=== PATIENT | female | born 1930 | race Caucasian/White ===

== ENCOUNTER 2017-02-20 07:16 | Inpatient (IN) | payer OTHER, MEDICARE ==
[~2017-02-20] VITALS: Ht 165.1 cm; Wt 49.9 kg
[2017-02-20 07:20] VITALS: BP_SYST 122
[2017-02-20] MEDS ORDERED: NS 500 ML IV SCH (07:25)
[2017-02-20] MEDS ORDERED: NACL 0.9% 500 ML IV ONE (07:30)
[2017-02-20] MEDS ORDERED: DILTIAZEM HCL 25 MG/5 ML VIAL IVP ONE ×2 (07:30→11:45)
[2017-02-20] MEDS ORDERED: SERT25TA PO (07:51)
[2017-02-20] MEDS ORDERED: CYM30 PO (07:51)
[2017-02-20] MEDS ORDERED: POTA8TAB4 PO (07:51)
[2017-02-20] MEDS ORDERED: MULT PO (07:51)
[2017-02-20] MEDS ORDERED: OMEP20CA10 PO (07:51)
[2017-02-20] MEDS ORDERED: ALBU8.5H8 INH (07:51)
[2017-02-20] MEDS ORDERED: MAG360OR83 PO (07:51)
[2017-02-20] MEDS ORDERED: DILT240C91 PO (07:51)
[2017-02-20] MEDS ORDERED: METO-442 PO (07:51)
[2017-02-20] MEDS ORDERED: DOCU250C PO (07:51)
[2017-02-20] MEDS ORDERED: LISI40TA4 PO (07:51)
[2017-02-20] MEDS ORDERED: ALEN10TA6 PO (07:51)
[2017-02-20] MEDS ORDERED: CALC-226 PO (07:51)
[2017-02-20] MEDS ORDERED: TRAM50TA92 PO (07:51)
[2017-02-20] MEDS ORDERED: DABI150C PO (07:51)
[2017-02-20 08:22] LABS: BASOPHILS # (AUTO) 0.2 K/uL (0.0-0.2); EOSINOPHILS # (AUTO) 0.1 K/uL (0.0-0.4); EOSINOPHILS % (AUTO) 1.4 % (0.0-4.0); HEMATOCRIT 42.7 % (36-48); HEMOGLOBIN 14.1 g/dL (12.0-16.0); LYMPHOCYTES # (AUTO) 1.5 K/uL (1.0-5.5); LYMPHOCYTES % (AUTO) 16.8 % (20.5-51.5); MEAN CORPUSCULAR HEMOGLOBIN 30 pg (27-31); MEAN CORPUSCULAR HGB CONC 33 % (32-36); MEAN CORPUSCULAR VOLUME 92 fL (79.0-98.0); MONOCYTES # (AUTO) 0.4 K/uL (0.0-1.0); MONOCYTES % (AUTO) 4.6 % (1.7-9.3); NEUTROPHILS # (AUTO) 6.4 K/uL (1.8-7.7); NEUTROPHILS % (AUTO) 75.2 % (40.0-70.0); PLATELET COUNT (AUTO) 206 K/uL (130-430); RED BLOOD CELL COUNT(AUTO) 4.63 MIL/uL (4.2-6.2); RED CELL DISTRIBUTION WIDTH 13.6 % (9.0-15.0); WHITE BLOOD COUNT (AUTO) 8.6 K/uL (4.8-10.8)
[2017-02-20 08:35] LABS: INR 1.2 (0.8-1.2); PROTHROMBIN TIME 12.5 SECS (9.5-12.5)
[2017-02-20 09:41] LABS: ANION GAP 4 (5-15); CALCIUM 8.6 mg/dL (8.4-11.0); CHLORIDE 109 mmol/L (98-107); CREATININE 1.11 mg/dL (0.55-1.30); GLUCOSE 95 mg/dL (70-99); POTASSIUM 3.3 mmol/L (3.5-5.1); SODIUM SERUM 144 mmol/L (136-145); UREA NITROGEN, BLOOD 20 mg/dL (8-21)
[2017-02-20 10:05] LABS: ALANINE AMINOTRANSFERASE 17 U/L (12-78); ALBUMIN 3.1 g/dL (3.4-4.8); ASPARTATE AMINOTRANSFERASE 22 U/L (10-37); TOTAL BILIRUBIN 0.5 mg/dL (0.0-1.0)
[2017-02-20 10:18] LABS: BILIRUBIN,URINE NEGATIVE (NEGATIVE); BLOOD, URINE 3+ (NEGATIVE); CLARITY/URINE SL HAZY (CLEAR); COLOR,URINE YELLOW (YELLOW); GLUCOSE,URINE NEGATIVE (NEGATIVE); KETONES,URINE NEGATIVE (NEGATIVE); LEUKOCYTE ESTERASE ,URINE NEGATIVE (NEGATIVE); NITRITE, URINE NEGATIVE (NEGATIVE); PROTEIN URINE TRACE (NEGATIVE); UROBILINOGEN,URINE 0.2 (0.2-1.0)
[2017-02-20 10:33] LABS: BACTERIA,URINE MODERATE /HPF (None Seen); RBC,URINE >100 /HPF (0-3); WBC,URINE 0-3 /HPF (0-3)
[2017-02-20] MEDS ORDERED: DABIGATRAN ETEXILATE MESYLATE 75 MG CAPSULE PO ONE (12:00)
[2017-02-20] MEDS ORDERED: METOPROLOL TARTRATE 25 MG TABLET PO ONE (12:00)
[2017-02-20] MEDS ORDERED: LORazepam 1 MG TABLET PO ONE (12:00)
[2017-02-20] MEDS ORDERED: DILTIAZEM HCL 240 MG CAP.SR.24H PO ONE (12:00)
[2017-02-20] MEDS ORDERED: LORazepam 2 MG/ML VIAL (FOR ER USE) IVP ONE (12:15)
[2017-02-20] MEDS ORDERED: LORazepam 2 MG/ML VIAL (FOR ER USE) ONE (12:26)
[2017-02-20] MEDS ORDERED: MAG-AL HYDROX/SIMETH 30 ML UDC PO PRN (13:00)
[2017-02-20] MEDS ORDERED: LORazepam 2 MG/ML VIAL IVP PRN (13:00)
[2017-02-20] MEDS ORDERED: ALBUTEROL MDI INHALATION 8 GM INH INH PRN (13:00)
[2017-02-20] MEDS ORDERED: traMADol HCL HCL 50 MG TABLET (ULTRAM) PO PRN (13:00)
[2017-02-20 15:33] VITALS: BP_SYST 145
[2017-02-20] MEDS ORDERED: POTASSIUM CHLORIDE 20 MEQ in NS 250 ML IV ONE (18:30)
[2017-02-20 19:10] VITALS: BP_SYST 134
[2017-02-20] MEDS: DABIGATRAN ETEXILATE MESYLATE 75 MG CAPSULE PO SCH (21:00)
[2017-02-20] MEDS: METOPROLOL TARTRATE 50 MG TABLET PO SCH (21:00)
[2017-02-20] MEDS: DILTIAZEM HCL 25 MG/5 ML VIAL IVP PRN (23:22)
[2017-02-21] VITALS (9 sets, daily range): BP systolic 141–186
[2017-02-21] MEDS: DILTIAZEM HCL 25 MG/5 ML VIAL IVP PRN ×3 (05:35→17:44)
[2017-02-21] MEDS ORDERED: ALENDRONATE SODIUM 10 MG TABLET (FOSAMAX) PO SCH (06:00)
[2017-02-21] MEDS: DULoxetine HCL 30 MG CAPSULE.DR (CYMBALTA) PO SCH (08:22)
[2017-02-21] MEDS: LEVOFLOXACIN 500 MG/D5W 100 ML IV SCH (08:22)
[2017-02-21] MEDS: DILTIAZEM HCL 240 MG CAP.SR.24H PO SCH ×2 (08:22→10:44)
[2017-02-21] MEDS: DOCUSATE SODIUM 250 MG CAPSULE PO SCH (08:22)
[2017-02-21] MEDS: MULTIVITAMINS TAB 1 TABLET PO SCH (08:23)
[2017-02-21] MEDS: LISINOPRIL 20 MG TABLET PO SCH (08:23)
[2017-02-21] MEDS: DABIGATRAN ETEXILATE MESYLATE 75 MG CAPSULE PO SCH (08:23)
[2017-02-21] MEDS: METOPROLOL TARTRATE 50 MG TABLET PO SCH ×3 (08:23→19:02)
[2017-02-21] MEDS: POTASSIUM CHLORIDE 8 MEQ TABLET.SA PO SCH (08:23)
[2017-02-21] MEDS: OMEPRAZOLE 20 MG CAPSULE.DR (PriLOSEC) PO SCH (08:23)
[2017-02-21] MEDS ORDERED: SERTRALINE HCL 50 MG TABLET PO SCH (09:00)
[2017-02-21] MEDS ORDERED: CALCIUM CARBONATE/VITAMIN D3 1 TAB TABLET PO SCH (09:00)
[2017-02-21] MEDS ORDERED: POTASSIUM CHLORIDE 40 MEQ, MAGNESIUM SULFATE 2 GM in 0.45% NS 250 ML IV ONE (09:15)
[2017-02-21] MEDS ORDERED: DILTIAZEM HCL 25 MG/5 ML VIAL IVP ONE (14:00)
[2017-02-22] VITALS (7 sets, daily range): BP systolic 108–154
[2017-02-22] MEDS: DILTIAZEM HCL 25 MG/5 ML VIAL IVP PRN ×2 (00:56→15:26)
[2017-02-22] MEDS: LORazepam 2 MG/ML VIAL IVP PRN (03:17)
[2017-02-22 07:44] LABS: BASOPHILS # (AUTO) 0.2 K/uL (0.0-0.2); BASOPHILS % (AUTO) 1.7 % (0.0-2.0); EOSINOPHILS # (AUTO) 0.1 K/uL (0.0-0.4); EOSINOPHILS % (AUTO) 0.6 % (0.0-4.0); HEMATOCRIT 44.7 % (36-48); HEMOGLOBIN 14.4 g/dL (12.0-16.0); LYMPHOCYTES # (AUTO) 1.4 K/uL (1.0-5.5); LYMPHOCYTES % (AUTO) 14.6 % (20.5-51.5); MEAN CORPUSCULAR HEMOGLOBIN 30 pg (27-31); MEAN CORPUSCULAR HGB CONC 32 % (32-36); MEAN CORPUSCULAR VOLUME 94 fL (79.0-98.0); MONOCYTES # (AUTO) 0.5 K/uL (0.0-1.0); MONOCYTES % (AUTO) 5.1 % (1.7-9.3); NEUTROPHILS # (AUTO) 7.4 K/uL (1.8-7.7); PLATELET COUNT (AUTO) 219 K/uL (130-430); RED BLOOD CELL COUNT(AUTO) 4.77 MIL/uL (4.2-6.2); RED CELL DISTRIBUTION WIDTH 13.5 % (9.0-15.0); WHITE BLOOD COUNT (AUTO) 9.6 K/uL (4.8-10.8)
[2017-02-22] MEDS: DILTIAZEM HCL 240 MG CAP.SR.24H PO SCH (08:05)
[2017-02-22] MEDS: LISINOPRIL 20 MG TABLET PO SCH (08:08)
[2017-02-22] MEDS: METOPROLOL TARTRATE 50 MG TABLET PO SCH ×2 (08:10→21:00)
[2017-02-22] MEDS: DOCUSATE SODIUM 250 MG CAPSULE PO SCH (08:10)
[2017-02-22] MEDS: POTASSIUM CHLORIDE 8 MEQ TABLET.SA PO SCH (08:11)
[2017-02-22] MEDS: OMEPRAZOLE 20 MG CAPSULE.DR (PriLOSEC) PO SCH (08:11)
[2017-02-22] MEDS: MULTIVITAMINS TAB 1 TABLET PO SCH (08:11)
[2017-02-22] MEDS: DULoxetine HCL 30 MG CAPSULE.DR (CYMBALTA) PO SCH (08:11)
[2017-02-22] MEDS: ENOXAPARIN SODIUM 60 MG/0.6 ML SYRINGE SUBCUT SCH (08:11)
[2017-02-22 08:19] LABS: T4 (THYROXINE) 6.7 ug/dL (4.5-12.0)
[2017-02-22 08:20] LABS: ANION GAP 10 (5-15); CALCIUM 8.8 mg/dL (8.4-11.0); CHLORIDE 111 mmol/L (98-107); CREATININE 1.03 mg/dL (0.55-1.30); GLUCOSE 119 mg/dL (70-99); POTASSIUM 3.5 mmol/L (3.5-5.1); SODIUM SERUM 145 mmol/L (136-145); THYROID STIMULATING HORMONE 1.89 uIu/mL (0.34-4.82); UREA NITROGEN, BLOOD 12 mg/dL (8-21)
[2017-02-22] MEDS: LEVOFLOXACIN 500 MG/D5W 100 ML IV SCH (08:23)
[2017-02-22] MEDS: HALOPERIDOL 1 MG TABLET (HALDOL) PO SCH ×2 (10:12→21:00)
[2017-02-23] MEDS: DILTIAZEM HCL 25 MG/5 ML VIAL IVP PRN ×3 (00:33→22:40)
[2017-02-23] MEDS: LORazepam 2 MG/ML VIAL IVP PRN (03:36)
[2017-02-23 04:29] VITALS: BP_SYST 142
[2017-02-23 08:30] LABS: ANION GAP 12 (5-15); CALCIUM 8.6 mg/dL (8.4-11.0); CHLORIDE 110 mmol/L (98-107); CREATININE 1.07 mg/dL (0.55-1.30); GLUCOSE 87 mg/dL (70-99); POTASSIUM 3.4 mmol/L (3.5-5.1); SODIUM SERUM 147 mmol/L (136-145); UREA NITROGEN, BLOOD 18 mg/dL (8-21)
[2017-02-23] MEDS: LEVOFLOXACIN 500 MG/D5W 100 ML IV SCH (09:44)
[2017-02-23] MEDS: ENOXAPARIN SODIUM 60 MG/0.6 ML SYRINGE SUBCUT SCH (09:55)
[2017-02-23] MEDS: HALOPERIDOL 1 MG TABLET (HALDOL) PO SCH ×2 (09:56→21:05)
[2017-02-23] MEDS: LISINOPRIL 20 MG TABLET PO SCH (09:56)
[2017-02-23] MEDS: METOPROLOL TARTRATE 50 MG TABLET PO SCH ×2 (09:56→21:05)
[2017-02-23] MEDS: MULTIVITAMINS TAB 1 TABLET PO SCH (09:56)
[2017-02-23] MEDS: OMEPRAZOLE 20 MG CAPSULE.DR (PriLOSEC) PO SCH (09:57)
[2017-02-23] MEDS: POTASSIUM CHLORIDE 8 MEQ TABLET.SA PO SCH (09:57)
[2017-02-23] MEDS: DOCUSATE SODIUM 250 MG CAPSULE PO SCH (09:57)
[2017-02-23] MEDS: DILTIAZEM HCL 240 MG CAP.SR.24H PO SCH (09:57)
[2017-02-23] MEDS: DULoxetine HCL 30 MG CAPSULE.DR (CYMBALTA) PO SCH (09:57)
[2017-02-23] MEDS ORDERED: POTASSIUM CHLORIDE 40 MEQ, MAGNESIUM SULFATE 4 GM in 0.45% NS 250 ML IV ONE (10:00)
[2017-02-23 11:52] VITALS: BP_SYST 123
[2017-02-23 16:40] VITALS: BP_SYST 127
[2017-02-23 20:28] VITALS: BP_SYST 133
[2017-02-23 23:50] VITALS: BP_SYST 154
[2017-02-24] VITALS: BP_SYST 154
[2017-02-24 05:02] VITALS: BP_SYST 126
[2017-02-24 07:54] LABS: BASOPHILS # (AUTO) 0.2 K/uL (0.0-0.2); BASOPHILS % (AUTO) 1.9 % (0.0-2.0); EOSINOPHILS # (AUTO) 0.3 K/uL (0.0-0.4); EOSINOPHILS % (AUTO) 2.8 % (0.0-4.0); HEMATOCRIT 41.5 % (36-48); HEMOGLOBIN 13.9 g/dL (12.0-16.0); LYMPHOCYTES # (AUTO) 1.6 K/uL (1.0-5.5); LYMPHOCYTES % (AUTO) 18.4 % (20.5-51.5); MEAN CORPUSCULAR HEMOGLOBIN 32 pg (27-31); MEAN CORPUSCULAR HGB CONC 34 % (32-36); MEAN CORPUSCULAR VOLUME 94 fL (79.0-98.0); MONOCYTES # (AUTO) 0.5 K/uL (0.0-1.0); MONOCYTES % (AUTO) 5.2 % (1.7-9.3); NEUTROPHILS # (AUTO) 6.3 K/uL (1.8-7.7); NEUTROPHILS % (AUTO) 71.7 % (40.0-70.0); PLATELET COUNT (AUTO) 190 K/uL (130-430); RED BLOOD CELL COUNT(AUTO) 4.41 MIL/uL (4.2-6.2); RED CELL DISTRIBUTION WIDTH 13.9 % (9.0-15.0); WHITE BLOOD COUNT (AUTO) 8.9 K/uL (4.8-10.8)
[2017-02-24 08:00] VITALS: BP_SYST 169
[2017-02-24 08:05] LABS: ANION GAP 11 (5-15); CALCIUM 8.2 mg/dL (8.4-11.0); CHLORIDE 109 mmol/L (98-107); CREATININE 0.98 mg/dL (0.55-1.30); GLUCOSE 95 mg/dL (70-99); POTASSIUM 3.6 mmol/L (3.5-5.1); SODIUM SERUM 143 mmol/L (136-145); UREA NITROGEN, BLOOD 16 mg/dL (8-21)
[2017-02-24] MEDS: HALOPERIDOL 1 MG TABLET (HALDOL) PO SCH ×2 (08:30→20:39)
[2017-02-24] MEDS: POTASSIUM CHLORIDE 8 MEQ TABLET.SA PO SCH (08:30)
[2017-02-24] MEDS: DOCUSATE SODIUM 250 MG CAPSULE PO SCH (08:30)
[2017-02-24] MEDS: MULTIVITAMINS TAB 1 TABLET PO SCH (08:30)
[2017-02-24] MEDS: OMEPRAZOLE 20 MG CAPSULE.DR (PriLOSEC) PO SCH (08:30)
[2017-02-24] MEDS: METOPROLOL TARTRATE 50 MG TABLET PO SCH ×2 (08:31→20:39)
[2017-02-24] MEDS: DULoxetine HCL 30 MG CAPSULE.DR (CYMBALTA) PO SCH (08:31)
[2017-02-24] MEDS: DILTIAZEM HCL 240 MG CAP.SR.24H PO SCH (08:31)
[2017-02-24] MEDS: ENOXAPARIN SODIUM 60 MG/0.6 ML SYRINGE SUBCUT SCH (08:32)
[2017-02-24] MEDS: LISINOPRIL 20 MG TABLET PO SCH (08:32)
[2017-02-24] MEDS ORDERED: POTASSIUM CHLORIDE 20 MEQ/PKT PACKET PO ONE (09:30)
[2017-02-24 11:54] VITALS: BP_SYST 113
[2017-02-24 16:04] VITALS: BP_SYST 117
[2017-02-24 17:17] VITALS: BP_SYST 117
== END 2017-02-24 21:10 | DRG 308 ==
LOC: SED 07:16 → STU 12:50
PROVIDERS: ADMIT Internal Medicine; ATTEND Internal Medicine
DX: I48.91 Unspecified atrial fibrillation (principal); G93.41 Metabolic encephalopathy; N39.0 Urinary tract infection, site not specified; F03.90 Unspecified dementia, unspecified severity, without behavioral disturbance, psychotic disturbance, mood disturbance, and anxiety; N18.3 Chronic kidney disease, stage 3 (moderate); I12.9 Hypertensive chronic kidney disease with stage 1 through stage 4 chronic kidney disease, or unspecified chronic kidney disease; K21.9 Gastro-esophageal reflux disease without esophagitis; E87.6 Hypokalemia; E78.5 Hyperlipidemia, unspecified; H35.30 Unspecified macular degeneration; Z90.49 Acquired absence of other specified parts of digestive tract; Z98.49 Cataract extraction status, unspecified eye; Z88.0 Allergy status to penicillin; Z88.8 Allergy status to other drugs, medicaments and biological substances
CPT/HCPCS: 36415; 71010; 80048; 80053; 81000-TC; 83605; 83735-TC; 84436; 84443-TC; 84480; 84484; 85025; 85610-TC; 85730-TC; 87040-TC; 87081; 87086; 93005; 96361; 96374; 96375; 96376; 99285; J1650; J1956; J2060; J3475; J3480; J3490; J7030; J7050; J7060